=== PATIENT | male | born 1940 | race Caucasian/White ===

== ENCOUNTER 2017-02-15 07:18 | Emergency (ER) | payer MEDICARE, OTHER ==
[~2017-02-15] VITALS: Ht 170.2 cm; Wt 89.8 kg
[~2017-02-15 07:18] MED LIST: ASPIRIN EC81 MG PO; CISPLATIN1 MG/1 ML IV; GEMCITABINE HCL1 GM IV; GLIMEPIRIDE4 MG PO; GLUTAMENT10 GM PO; LANTUS100 UNIT/1 SUB-Q; LORAZEPAM1 MG PO; NOVOLOG100 UNITS/ SUB-Q; OMEPRAZOLE20 MG; PRILOSEC20 MG PO; PROBIOTIC1 EAC1; TOPROL XL25 MG PO; VITAMIN D-32000 UNIT PO; VITAMIN E100 UNI1 PO; WARFARIN SODIUM5 MG; ZYRTEC10 MG
[2017-02-15] MEDS ORDERED: ACETAMINOPHEN-1 EAC1 PO (07:36)
--- NOTE | 2017-02-16 07:31 | EKG ---
[facility] [address] [place], [place] [address] Signed Sinus tachycardia Low voltage QRS Possible Inferior infarct , age undetermined Abnormal ECG No previous ECGs available Confirmed by BALDO COTO MD ([id number]) on 02/16/2017 7:31:05 AM Electronically Signed By: BALDO COTO MD 02/16/17 0731 PATIENT NAME: KIMMIE ATKINS Electrocardiogram DATE OF : 42 PHYSICIAN: BALDO COTO MD REPORT #: [id number] REPORT IS CONFIDENTIAL AND NOT TO BE RELEASED WITHOUT AUTHORIZATION
[2017-03-22] MEDS ORDERED: DOXYCYCLINE HY100 MG PO (10:30)
== END 2017-02-15 13:03 | disposition home or self-care (01) ==
LOC: ED 07:18
DX: R41.0 Disorientation, unspecified (principal); R53.1 Weakness; E11.9 Type 2 diabetes mellitus without complications; C78.7 Secondary malignant neoplasm of liver and intrahepatic bile duct; Z86.711 Personal history of pulmonary embolism; Z87.891 Personal history of nicotine dependence; Z90.49 Acquired absence of other specified parts of digestive tract; Z88.8 Allergy status to other drugs, medicaments and biological substances; Z79.82 Long term (current) use of aspirin; Z79.899 Other long term (current) drug therapy; Z79.84 Long term (current) use of oral hypoglycemic drugs
CPT/HCPCS: 70450; 70553; 71020; 80053; 81001; 83605; 84484; 85025; 87040; 87077; 87186; 93005; 93010; 99284; A9579

== ENCOUNTER 2017-02-16 09:58 | Inpatient (IN) | payer MEDICARE, OTHER ==
[~2017-02-16] VITALS: Ht 170.2 cm; Wt 91.0 kg
[~2017-02-16 09:58] MED LIST changes: +ACETAMINOPHEN-1 EAC1 PO
--- OUTSIDE RECORDS SUMMARY | 2017-02-16 10:20 | XMS | Clinical Summary ---
Demographics + + + | Address | [address] | | | [place] [address] | + + + | Home Phone | | + + + | Preferred Language | Unknown | + + + | Marital Status | | + + + | Synagogue Affiliation | Unknown | + + + | Race | White | + + + | Ethnic Group | Not or | + + + Author + + + | Author | [facility] | + + + | Organization | [facility] | + + + | Address | Unknown | + + + | Phone | Unavailable | + + + Support +------+ + + + +-------+ | Name | Relationship | Address | Phone | +------+ + + + +-------+ ECON | [address] | | [place] | [id number] | +------+ + + + +-------+ Care Team Providers + +------+-------+ | Care Edge Plugger Name | Role | Phone | + +------+-------+ | Kory Briceno MD | PP | tel | + +------+-------+ Source Comments JEREMY is fully live on [facility] and [facility] & [facility] Allergies + + + + + + | Active Allergy | Reactions | Severity | Noted | Comments | | | | | Date | | + + + + + + | Cyclobenzaprine | Confusion | | 09/04/19 | | | | | | 16 | | + + + + + + | Promethazine Hcl | Agitation | | 09/04/19 | From Phenergan | | | | | 16 | | + + + + + + Current Medications + + +-------+---------+------+------+-------+ | Prescription | Sig. | Disp. | Refills | Star | End | Statu | | | | | | t | Date | s | | | | | | Date | | | + + +-------+---------+------+------+-------+ | aspirin EC 81 mg | Take 162 mg by mouth | | | | | Activ | | oral tablet,delayed | once daily. | | | | | e | | release (DR/EC) | | | | | | | + + +-------+---------+------+------+-------+ | omeprazole 20 mg | Take 20 mg by mouth | | | | | Activ | | oral capsule,delayed | once daily. | | | | | e | | release(DR/EC) | | | | | | | + + +-------+---------+------+------+-------+ | pyridoxine, | Take 100 mg by mouth | | | | | Activ | | vitamin B6, (VITAMIN | once daily. | | | | | e | | B-6) 100 mg oral | | | | | | | | tablet | | | | | | | + + +-------+---------+------+------+-------+ | cyanocobalamin, | Place 1 tablet under | | | | | Activ | | vitamin B-12, | tongue once daily. | | | | | e | | (VITAMIN B-12) 5,000 | | | | | | | | mcg sublingual | | | | | | | | tablet, sublingual | | | | | | | + + +-------+---------+------+------+-------+ | CHOLECALCIFEROL, | Take 2,000 Units by | | | | | Activ | | VITAMIN D3, (VITAMIN | mouth two times | | | | | e | | D3 ORAL) | daily. | | | | | | + + +-------+---------+------+------+-------+ | LACTOBACILLUS | Take 1 tablet by | | | | | Activ | | ACIDOPHILUS | mouth once daily. | | | | | e | | (PROBIOTIC ORAL) | | | | | | | + + +-------+---------+------+------+-------+ Active Problems Not on file Family History + + +------+ + | Medical History | Relation | Name | Comments | + + +------+ + | Alcohol/Drug | Father | | | + + +------+ + | Diabetes | Father | | | + + +------+ + | Heart Disease | Father | | | + + +------+ + | Stroke | Father | | | + + +------+ + | Arthritis | Mother | | | + + +------+ + | Diabetes | Mother | | | + + +------+ + | Arthritis | Sister | | | + + +------+ + + +------+--------+ + | Relation | Name | Status | Comments | + +------+--------+ + | Father | | | | + +------+--------+ + | Mother | | | | + +------+--------+ + | Sister | | | | + +------+--------+ + Social History + + + +--------+ + | Tobacco Use | Types | Packs/Day | Years | Date | | | | | Used | | + + + +--------+ + | Former Smoker | Cigarettes | 1 | | Quit: 03/13/1974 | + + + +--------+ + + +---+---+---+ | Smokeless Tobacco: | | | | | Never Used | | | | + +---+---+---+ + + +---------+ + | Alcohol Use | Drinks/We | oz/Week | Comments | | | ek | | | + + +---------+ + | Yes | 0-2 | 0.0 - | | | | Standard | 1.2 | | | | drinks or | | | | | | | | | | equivalen | | | | | t | | | + + +---------+ + + + + | Sex Assigned at | Date Recorded | | | | + + + | Not on file | | + + + Last Filed Vital Signs + + + + | Vital Sign | Reading | Time Taken | + + + + | Blood Pressure | 112/75 | 09/04/2015 10:24 AM PDT | + + + + | Pulse | 82 | 09/04/2015 10:24 AM PDT | + + + + | Temperature | 36.8 C (98.2 F) | 09/04/2015 10:24 AM PDT | + + + + | Respiratory Rate | 16 | 09/04/2015 10:24 AM PDT | + + + + | Oxygen Saturation | - | - | + + + + | Inhaled Oxygen | - | - | | Concentration | | | + + + + | Weight | 89.8 kg (198 lb) | 09/04/2015 10:24 AM PDT | + + + + | Height | 167 cm (5' 5.75") | 09/04/2015 10:24 AM PDT | + + + + | Body Mass Index | 32.2 | 09/04/2015 10:24 AM PDT | + + + + Plan of Treatment + + + + + | Health Maintenance | Due Date | Last Done | Comments | + + + + + | INFLUENZA VACCINE | | | | | (FLU SHOT) | 7 | | | + + + + + Results Not on filefrom Last 3 Months
[2017-03-22] MEDS ORDERED: DOXYCYCLINE HY100 MG PO (10:30)
== END 2017-02-19 13:30 | disposition swing bed (61) | DRG 872 ==
LOC: ED 09:58 → MS 13:24
PROVIDERS: ADMIT Internal Medicine
DX: A41.81 Sepsis due to Enterococcus (principal); C22.1 Intrahepatic bile duct carcinoma; C79.9 Secondary malignant neoplasm of unspecified site; E11.9 Type 2 diabetes mellitus without complications; Z86.718 Personal history of other venous thrombosis and embolism; Z79.84 Long term (current) use of oral hypoglycemic drugs
CPT/HCPCS: 36415; 76700; 80053; 81001; 83605; 85025; 85610; 86140; 87040; 87045; 87046; J0290; J0696; J2185; J7030

== ENCOUNTER 2017-02-19 13:30 | Inpatient (IN) | payer MEDICARE, OTHER ==
[~2017-02-19] VITALS: Ht 170.2 cm; Wt 94.6 kg
--- NOTE | 2017-02-19 14:04 | NUR ---
MED REC COMPLETE WITH PATIENT IN-PATIENT STATUS, NOW SWING BED.
--- NOTE | 2017-02-19 14:30 | NUR ---
PT TRANSITIONED TO SWING BED FOR IV ABX THERAPY. ABX INFUSING. PT ON ROOM AIR, LUNG SOUNDS CLEAR. PT WITHOUT EDEMA. IV TO LEFT AC, PATENT. PT TOLERATING ADA DIET. INDEPENDENT IN ROOM. PT DENIES NEEDS AT THIS TIME.
--- NOTE | 2017-02-19 17:35 | NUR ---
PT WALKING IN RIBERA INDEPENDENTLY.
--- NOTE | 2017-02-19 17:59 | NUR ---
PT NOW SWING BED. ON ROOM AIR, LUNG SOUNDS CLEAR. ADA DIET, ACCUCHECKS, TOLERATING WELL. INDEPENDENT IN ROOM AND RIBERA. RECEIVING IV AMPICILLIN Q4H, OTHERWISE SALINE LOCKED, IV DUE TO BE ROTATED TOMORROW. PT VOIDING QS, HAD BM TODAY.
--- NOTE | 2017-02-19 18:46 | NUR ---
PATIENT REFUSED SHOWER TODAY BUT WILL TAKE A SHOWER TOMORROW. 6 LAPS AROUND MED SURG.
--- NOTE | 2017-02-19 19:53 | NUR ---
AMBULATING IN HALLS, IN GOOD SPIRITS, SL SECURED AND PATENT.
--- NOTE | 2017-02-19 22:00 | NUR ---
SCHEDULED ABX STARTED, HS CARES DONE INDEP BY PT, STATES HE IS READY TO GO TO BED FOR THE EVNING, IN GOOD SPIRITS, DENIES FURTHER NEEDS, CALL LIGHT IN EASY REACH.
--- NOTE | 2017-02-20 02:36 | NUR ---
REFILLED ICE WATER.
--- NOTE | 2017-02-20 04:00 | NUR ---
PT IS RESTING COMFORTABLY, RESP EVEN AND UNLABORED.
--- NOTE | 2017-02-20 08:07 | NUR ---
PT AWAKE IN BED. EMPTYED URNAIL. SET NURSE UP TO DO IV. GAVE WET WASH CLOTH. AM CARE. EMPTY GARBAGE. FRESH ICE WATER AND COFFEE.
--- NOTE | 2017-02-20 10:17 | NUR ---
PATIENT SET UP FOR SHOWER. IN ROOM TO HELP. PATIENT IS INDEPENDANT AND DENIES OTHER NEEDS.
--- NOTE | 2017-02-20 10:54 | NUR ---
PT IV INFILTRATED. DC'D. AMPICILIN NOT GIVEN THIS MORNING. UNABLE TO START IV.
--- NOTE | 2017-02-20 11:37 | NUR ---
PT IN BED AWAKE. ASKED IF HE NEEDED ANDTHING PT STATED HE WAS FINE. COMPLETE LINEN CHANGE AND CLEANED UP BR AFTER SHOWER.
--- NOTE | 2017-02-20 11:48 | NUR ---
PT RESTING, WITH HIS SUPPORTING. PT SEEMS ALITTLE UPSET HIS VEINS COLLAPSED. THEY CAN NOW USE A PORT FOR BOTH IV INFUSION FOR ANTI-BIOTICS AND HIS CANCER TREATMENT. HE SEEMS TO BE COPING. O.T. CAME IN TO WORK WITH PT. WILL CONTINUE TO FOLLOW NEEDED
--- NOTE | 2017-02-20 12:03 | NUR ---
PATIENT SET UP IN CHAIR TO EAT LUNCH WITH . CALL BUTTON IN REACH. LINENS CHANGED. FRESH ICE WATER GIVEN.
--- NOTE | 2017-02-20 16:06 | NUR ---
PT DOING WELL SAID HE DID NOT NEED ANYTHING,
--- NOTE | 2017-02-20 18:06 | NUR ---
SWING BED. HERE FOR REHAB AND ABX. ROCEPHIN DAILY. WILL CONTINUE TO RECEIVE THROUGH . DANY PICC LINE PLACED TODAY. 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 WILL KEEP PICC FOR TREATMENT AFTER D/C. INDEPENDENT TO AMBULATE.
--- NOTE | 2017-02-20 19:15 | NUR ---
BEDSIDE REPORT RECEIVED FROM OFFGOING RN'S. PT LYING IN BED, DENIES NEEDS AT THIS TIME. CALL LIGHT WITHIN REACH.
--- NOTE | 2017-02-20 22:45 | NUR ---
PT RESTING IN BED WITH EYES CLOSED, WAKES EASILY. PT ASSESSMENT COMPLETED. PT DENIES PAIN, NAUSEA, SOB. PICC LINE PRESSURE DRESSING REMOVED. SLIGHT AMOUNT OF BLOOD NOTED BELOW PICC LINE DRESSING. PT DENIES PAIN OR TENDERNESS TO SITE. PT REQUESTS ICE FOR WATER, PROVIDED. PT DENIES OTHER NEEDS. CALL LIGHT WITHIN REACH.
--- NOTE | 2017-02-21 00:15 | NUR ---
PT RESTING IN BED WITH EYES CLOSED. RESPIRATIONS EVEN AND UNLABORED. PT APPEARS TO BE SLEEPING. CALL LIGHT WITHIN REACH.
--- NOTE | 2017-02-21 02:20 | NUR ---
PT RESTING IN BED WITH EYES CLOSED. WAKES EASILY FOR MEDICATION ADMINISTRATION, REMAINS DROWSY. PT DENIES NEEDS AT THIS TIME. URINAL EMPTIED, CALL LIGHT WITHIN PT'S REACH.
--- NOTE | 2017-02-21 05:48 | NUR ---
UNEVENTFUL NIGHT. PT RESTING MOST OF SHIFT. NO PAIN. ROCEPHIN AND AMPICILLIN DAILY, WILL CONTINUE THROUGH 02/25. PICC PLACED YEST., PLAN TO DC WITH PICC FOR KEYTRUDA. PT WITH METASTATIC CHOLANGIOCARCINOMA WITH METS TO LIVER. PT INDEPENDENT. PICC HEP LOCKED, EXCEPT FOR IV ABX. UO QS.
--- NOTE | 2017-02-21 07:50 | NUR ---
PT IN BED AWAKE. PICKED UP ROOM. SET UP FOR BRK. AM CARE.
--- NOTE | 2017-02-21 10:06 | NUR ---
STARTED CEFEPIME. PT UP IN BED. AT BEDSIDE. PAIN @ 7/10 IN STOMACH. NO BM FOR 2 DAYS. OFFERED PRUNE JUCE. DCLINED FOR NOW. PLAN TO WALK AND SHOWER WHEN SALINE LOCKED.
--- NOTE | 2017-02-21 11:18 | NUR ---
PT WAS WALKING IN RIBERA AND STOPPED BY MY OFFICE. HE HAD JUST TAKEN A SHOWER AND WAS LOOKING FOWARD TO WALKING TO THE CANCER CLINIC AND GET SOME INFO REGARDING BLOOD DRAWS USING HIS NEW PICC LINE. SLEPT WELL, BUT ANXIOUS TO BE DC'D. MUST BE FEELING BETTER, HE JOKED WITH ME MORE TODAY. WILL CONTINUE TO FOLLOW NEEDED
--- NOTE | 2017-02-21 11:51 | NUR ---
lunch trays taken into room. got patient set up on side of bed for lunch
--- NOTE | 2017-02-21 14:57 | NUR ---
PT WATCHING TV. COMFORTABLE IN BED. NO PAIN REPORTED. PERSONAL ITEMS AND CALL LIGHT WITHIN REACH. AMPICILLIN STARTED .
--- NOTE | 2017-02-21 15:29 | NUR ---
PT AWAKE IN BED. FRESH ICE WATER.
--- NOTE | 2017-02-21 16:53 | NUR ---
PT COMFORTABLE IN BED. EMPTIED URINAL. NO PAIN. PERSONAL ITEMS AND CALL LIGHT WITHIN REACH.
--- NOTE | 2017-02-21 17:24 | NUR ---
SWING BED. PT RECEIVING AMPICILLAN Q4H. INDIPENDENT. PICC IN DANY SALINE LOCKED. OCATIONAL ABDOMINAL PAIN.ADA DIET. DISCHARGE PLAN FOR THE THE .
--- NOTE | 2017-02-21 17:31 | NUR ---
SWING BED. DAILY AMPICILLAN. INDEPENDENT. DANY PICC SALINE LOCKED. OCCASIONAL ABDOMINAL PAIN. (CRAMP) WALKS IT OFF. PLAN TO DISCHARGE THE . PLANS TO KEEP PICC AFTER DISCHARGE.
--- NOTE | 2017-02-21 18:40 | NUR ---
PT DOING WELL. FRESH ICE WATER.
--- NOTE | 2017-02-21 19:15 | NUR ---
BEDSIDE REPORT RECEIVED FROM OFFGOING RNS. PT LYING IN BED. REQUESTS MORE WATER, PROVIDED. PT DENIES OTHER NEEDS AT THIS TIME. CALL LIGHT WITHIN REACH.
--- NOTE | 2017-02-21 20:52 | NUR ---
REFILLED FRESH ICE WATER.
--- NOTE | 2017-02-21 23:00 | NUR ---
PT ASSESSMENT COMPLETE. PT DENIES PAIN, NAUSEA, SOB. PT UP TO USE THE BATHROOM INDEPENDENTLY. PT DENIES FURTHER NEEDS AT THIS TIME. CALL LIGHT WITHIN REACH.
--- NOTE | 2017-02-21 23:27 | NUR ---
PT IV SOUNDING, PT WOKE. EMPTIED URINAL, CALL LIGHT WITH REACH. OFFERS NO COMPLAINTS, NO OTHER NEEDS.
--- NOTE | 2017-02-22 02:15 | NUR ---
PT UP TO USE THE BATHROOM INDEPENDENTLY WITHOUT ASSISTANCE WHILE SUPERINTENDENT MARINE OIL TERMINAL IN ROOM. PT DENIES PAIN, NAUSEA, SOB. STATES THAT HE WAS SLEEPING WELL. DENIES NEEDS AT THIS TIME.
--- NOTE | 2017-02-22 03:00 | NUR ---
IV TUBING DISCONNECTED, PICC LINE SL. PT TOLERATED WELL. DENIES NEEDS AT THIS TIME. CALL LIGHT WITHIN REACH.
--- NOTE | 2017-02-22 05:12 | NUR ---
UNEVENTFUL SHIFT. PT RESTED THROUGH THE NIGHT. NO PAIN, NAUSEA, SOB. Q 4 AMPICILLIN THROUGH 02/25. PICC LINE TO DANY. PT PLAN TO DC WITH PICC FOR CHEMO TX. INDEPENDENT IN ROOM AND HALLWAY. UO QS.
--- NOTE | 2017-02-22 07:05 | NUR ---
BEDSIDE HANDOFF REPORT RECEIVED FROM WINDING MACHINE OPERATOR RN. PT SLEEPING LEFT UNDISTURBED.
--- NOTE | 2017-02-22 08:00 | NUR ---
PT SITTING ON EDGE OF BED. PT DENIES PAIN. PT ON ROOM AIR, LUNG SOUNDS CLEAR, DENIES SOB. PT TOELRATING ADA DIET, GOOD APPETITE, BOWEL TONES ACTIVE, PT WITHOUT BM FOR 2 DAYS, DISCUSSED BOWEL PROTOCOL, PT WOULD LIKE TO TRY PRUNE JUICE FOR NOW, WILL REASSESS FOR BM. PT PT WITH PICC LINE, SALINE LOCKED. PT WITHOUT EDEMA, HX NEUROPATHY, DENIES NEW NUMBNESS OR TINGLINING. PT VOIDING QS. PT DENIES OTHER NEEDS AT THIS TIME, DISCUSSED PLAN OF CARE FOR THE DAY.
--- NOTE | 2017-02-22 10:01 | NUR ---
PATIENT RESTING IN BED WATCHING TV. PATIENT WOULD LIKE TO SHOWER AFTER IV MEDICATION IS FINISHED. FRESH ICE WATER GIVEN CALL BUTTON IN REACH. NO OTHER NEEDS AT THIS TIME.
--- NOTE | 2017-02-22 10:41 | NUR ---
IV AMPICILLIN INFUSION COMPLETED. PICC LINE FLUSHED, HERPAIN LOCKED. PT DENIES NEEDS AT THIS TIME.
--- NOTE | 2017-02-22 13:20 | NUR ---
PT COMPLAINT OF RUQ ABD PAIN WITH RADIATION TO THE BACK, RATING PAIN 10/10, ATTEMPTED TO WALK, STATED THAT DID NOT HELP. GIVEN ASPIRIN PER PRN ORDER. MD NOTIFIED OF NEW REPORT OF PAIN.
--- NOTE | 2017-02-22 13:46 | NUR ---
PT GIVEN 2.5MG OXYCODONE FOR ABD PAIN 12/20. IV AMPICILLIN INFUSING. PT DENIES OTHER NEEDS AT THIS TIME.
--- NOTE | 2017-02-22 14:21 | NUR ---
PT RESTING IN BED, STRONG ABDOMONAL PAIN. PAIN MEDS GIVEN, HAS BEEN A VERY DIFFICULT DAY FOR HIM. PT REQUESTED PRAYER-STILL TRYING TO STAY POSITIVE. I WILL CONTINUE TO FOLLOW
--- NOTE | 2017-02-22 17:46 | NUR ---
PT RESTING IN BED. IV AMPICILLIN INFUSING. DISCUSSED PAIN MANAGEMENT WITH PT, PT CONTINUES TO RATE PAIN HIGH, PT DOES NOT WANT TO INCREASE DOSE OR TRY A DIFFERENT NARCOTIC PAIN MEDICATION, PT REFUSING HEAT/COLD THERAPY. PT DENIES NEEDS AT THIS TIME.
--- NOTE | 2017-02-22 17:48 | NUR ---
PT HAD UNEVENTFUL DAY. PT WITH INCREASED PAIN TO RUQ, NEW ORDER FOR 2.5 MG OXYCODONE, HAS NOT RECEIEVED RELIEF. PT ON ROOM AIR, LUNG SOUNDS CLEAR. PT INDEPENDENT IN ROOM. TOLERATING ADA DIET. PT SALINE LOCKED, RECEIVING IV AMPICILLIN. PT VOIDING QS, HAD BM TODAY.
--- NOTE | 2017-02-22 19:00 | NUR ---
RECEIVED REPORT FROM DAY SHIFT RN. PATIENT IS RESTING IN BED. PATIENT DENIES ANY NEEDS AT THIS TIME. CALL LIGHT IN REACH.
--- NOTE | 2017-02-22 20:00 | NUR ---
whiteboard updated, room tidied. patient water refilled. does not need anything else at this time.
--- NOTE | 2017-02-22 20:20 | NUR ---
PATIENT ASSESMENT COMPLETED. PATIENTS EVENING MEDICATIONS GIVEN PER ORDER. PATIENT RATES PAIN AT AN 8/10. PATIENT REFUSES PAIN MEDICATION AT THIS TIME. PATIENT OFFERED ALTERNATIVE METHODS SUCH HEAT PACK/ICE PACKS. PATIENT REFUSED. PATIENT DENIES ANY FURTHER NEEDS AT THIS TIME. CALL LIGHT IS WITHIN REACH. PATIENT IS AAOX3.
--- NOTE | 2017-02-22 21:10 | NUR ---
ABX DONE INFUSING. PATIENTS PICC LINE IS ERNESTO HEPLOCKED. PATIENT DENIES ANY FURTHER NEEDS. AT THIS TIME. CALL LIGHT IN REACH.
--- NOTE | 2017-02-22 21:22 | NUR ---
PT BAKARI SOUNDING. PT STATED HE "HAD A BAD DAY" WHEN ASKED HOW HIS DAY WAS. SAID HE HAD "LIVER AND STOMACH PAIN" IS BETTER NOW. VISITED WITH PT FOR FEW MIN, SAID HE WAS OK, CALL LIGHT WITHIN REACH. DENIES NEEDS AT THIS TIME.
--- NOTE | 2017-02-22 23:56 | NUR ---
refilled patient's ice water and dumped urinal. also got patient lotion for his feet as he states they are itchy.
--- NOTE | 2017-02-23 00:04 | NUR ---
PATIENT IS RESTING IN BED WITH EYES CLOSED. BREATHING IS EVEN AND UNLABORED, RR 17. CALL LIGHT IN REACH.
--- NOTE | 2017-02-23 01:56 | NUR ---
PATIENTS 0200 MEDICATIONS GIVEN PER ORDER. PATIENT RATES PAIN AT A 7/10. PATIENT CONTINUES TO REFUSE PAIN MEDICATION. PATIENT DENIES ANY FURTHER NEEDS AT THIS TIME. CALL LIGHT IN REACH.
--- NOTE | 2017-02-23 02:55 | NUR ---
NURSE IN ROOM
--- NOTE | 2017-02-23 02:59 | NUR ---
IV ABX IS DONE INFUSING. PATIENT IS NOW SL. PATIENT DID NOT AWAKEN. PATIENTS BREATHING IS EVEN AND UNLABORED, RR 18. CALL LIGHT IN REACH.
--- NOTE | 2017-02-23 04:07 | NUR ---
PATIENT IS IN BED RESTING WITH EYES CLOSED. BREATHING IS EVEN AND UNLABORED, RR18. CALL LIGHT IN REACH.
--- NOTE | 2017-02-23 04:47 | NUR ---
PATIENT RESTED WELL THROUGHOUT THE SHIFT. PATIENT IS ON AN ADA DIET, TOLERATING WELL, NO COMPLAINTS OF NAUSEA. PATIENTS PICC IS SL/HEP LOCKED WHEN NOT IN USE. PATIENT IS INDEPENDENT IN THE ROOM AND IS STEADY ON HIS FEET. PATIENT IS AAOX3. PATIENT HAS INCREASED PAIN BUT REFUSES PAIN MEDICATION.
--- NOTE | 2017-02-23 05:49 | NUR ---
PATIENTS 0600 MEDICATIONS GIVEN PER ORDER. PATIENT ONLY AWOKEN MOMENTARILY THEN WENT BACK TO SLEEP. CALL LIGHT IN REACH.
--- NOTE | 2017-02-23 06:28 | NUR ---
PATIENTS IV ABX IS DONE INFUSING. PATIENT IS NOW SL. PATIENT DENIES ANY NEEDS AT THIS TIME. PATIENT IS UP TO THE RESTROOM AND IS STEADY ON HIS FEET.
--- NOTE | 2017-02-23 10:00 | NUR ---
PATIENT UP AMBULATING IN HALLS, STATES " MY PAIN IS FINE, I TOLERATE IT FINE AND DON'T NEED ANYTHING". NO GRIMACE TO FACE. VS STABLE. PATIENT PLANS TO HAVE LUNCH WITH TODAY.
--- NOTE | 2017-02-23 11:30 | NUR ---
PATIENT LEFT TO HAVE LUNCH DOWNSTAIRS WITH .
--- NOTE | 2017-02-23 12:36 | NUR ---
PT SITTING UP IN BED-ALERT, ORIENTED AND SUPPORTED BY HIS DENTON. TODAY IS A MUCH BETTER DAY. THEY ARE GOING TO THE [facility] FOR LUNCH, BUT DENTON IS MAKING HIM GET DRESSED! GOOD VISIT, COUNTING DOWN THE DAYS UNTIL DC SAT. I EXTENDED A BLESSING, WILL CONTINUE TO FOLLOW
--- NOTE | 2017-02-23 15:13 | NUR ---
PT IS RESTING IN BED WITH CALL LIGHT IN REACH. PT DID NOT NEED ANYTHING AT THE MOMENT
--- NOTE | 2017-02-23 17:40 | NUR ---
PT IS RESTING IN BED SAFELY WITH CALL LIGHT IN REACH. PT ASKED FOR MORE ICE WATER.
--- NOTE | 2017-02-23 18:34 | NUR ---
PATIENT UP THROUGHOUT DAY, NO COMPAINTS OF INCREASED PAIN. REPORTS MANAGING PAIN WELL. WENT TO LUNCH WITH . APPEARS TO BE IN GOOD SPIRITS. PATIENT STATES " MY PAIN IS WELL CONTROLLED".
--- NOTE | 2017-02-23 20:01 | NUR ---
RECEIVED REPORT FROM DAYU SHIFT RN. PATIENT IS RESTING IN BED WATCHING TV. PATIENT DENIES ANY NEEDS. NO NEEDS AT THIS TIME. CALL LIGHT IN REACH.
--- NOTE | 2017-02-23 21:49 | NUR ---
PATIENT ASSESMENT COMPLETED. PATIENTS EVENING MEDCIATIONS GIVEN PER ORDER. PATIENT RATES PAIN AT A 5/10. PATIENT CONTINUES TO REFUSE PAIN MEDICATION. EDUCATED PATIENT ON PAIN MANAGEMENT. PATIENT STATED "IT IS BETTER AND I CAN TOLERATE IT" PATIENT AGREED TO CALL IF HE NEEDED ANY PAIN MEDICATION AT THIS TIME. PATIENT DENIES ANY FURTHER NEEDS CALL LIGHT IN REACH.
--- NOTE | 2017-02-23 22:14 | NUR ---
PATIENTS ABX IS DONE INFUSING. PATIENTS PICC LINE IS NOW HEP LOCKED. PATIENT CONTINUES TO REFUSE PAIN MEDICATION. PAIN IS A 4/10. PATIENT DENIES ANY FURTHER NEEDS AT THIS TIME. CALL LIGHT IN REACH.
--- NOTE | 2017-02-23 23:59 | NUR ---
PATIENT IS RESTING IN BED WITH EYES CLOSED. BREATHING IS EVEN AND UNLABORED, RR 17. CALL LIGHT IN REACH.
--- NOTE | 2017-02-24 02:12 | NUR ---
PATIENTS 0200 MEDICATIONS GIVEN PER ORDER. PATIENT DENIES ANY NEEDS AT THIS TIME. CALL LIGHT IN REACH.
--- NOTE | 2017-02-24 04:05 | NUR ---
PATIENT IS RESTING IN BED WITH EYES CLOSED, RR 18
--- NOTE | 2017-02-24 04:53 | NUR ---
PATIENT RESTED WELL THROUGHOUT THE SHIFT. PATIENT IS ON AN ADA DIET AND TOELRATING IT WELL, NO COMPLAINTS OF NAUSEA. PATIENT IS INDEPENDNET IN THE ROOM AND IS STEADY ON HIS FEET. PATIENT HAS A PICC LINE IN HIS RIGHT ARM THAT DRAWS BACK BLOOD AND FLUSHES WELL. PICC IS HEP/SL WHEN NOT IN USE. PATIENT CONTINUES TO RATE PAIN AT A 4-5/10 IN THE RUQ. PATIENT CONTINUES TO REFUSE PAIN MEDICATION. PATIENT IS AAOX3 AND USES CALL LIGHT APPROPRIATELY.
--- NOTE | 2017-02-24 06:41 | NUR ---
PATIENTS IV ABX IS DONE INFUSING. PATIENT IS NOW SL
--- NOTE | 2017-02-24 09:25 | NUR ---
PT IS RESTING IN BED SAFELY WITH CALL LIGHT IN REACH. PT WAS WASHED FACE AND HANDS, WELL BRUSHED HIS TEETH. PT WILL CALL WHEN HE IS READY TO SHOWER. PT ASKED FOR ICE WATER
--- NOTE | 2017-02-24 11:00 | NUR ---
PATIENT RESTING IN BED, STATES " I JUST DON'T FEEL WELL TODAY". FULL BODY ASSEMSENT DONE. DENIES PAIN. VS STABLE.
[2017-02-24] MEDS ORDERED: AMOXICILLIN500 MG PO (12:18)
--- NOTE | 2017-02-24 14:05 | NUR ---
PT RESTING COMFORTABLY, WATCHING TV. HE IS ALMOST COUNTING THE SECONDS UNTIL DC TOMORROW BY 10AM. SAID HE FEELS SO MUCH BETTER THAN WHEN HE CAME IN. EXTENDED A BLESSING
--- NOTE | 2017-02-24 14:48 | NUR ---
ASKED HIM IF HE WANTED TO TAKE A SHOWER TODAY AND HE SAID HE WILL TAKE ONE TOMORROW.
--- NOTE | 2017-02-24 18:10 | NUR ---
PT IS RESTING IN BED SAFELY WITH CALL LIGHT IN REACH. PT ASKED FOR MORE ICE WATER
--- NOTE | 2017-02-24 18:30 | NUR ---
PATIENT RESTED THROUGHOUT DAY, UP AMBULATING IN HALLS FEW TIMES THROUGHOUT DAY. IV ANTIBIOTICS CONTINUED. PLAN TO DISCHARGE IN THE MORNING.
--- NOTE | 2017-02-24 19:00 | NUR ---
HANDOFF REPORT RECEIVED FROM MILAGROS SOMMER AT PT DOORWAY, PER PT REQUEST TO SLEEP. PT SLEEPING ON LEFT SIDE, VISIBLE CHEST RISE. WILL CONTINUE TO MONITOR.
--- NOTE | 2017-02-24 20:49 | NUR ---
PT SLEEPING, LIGHTS OFF IN ROOM, APPEARS COMFORTABLE, BREATHING UNLABORED, VISIBLE CHEST RISE. WILL CONTINUE TO MONITOR.
--- NOTE | 2017-02-24 22:19 | NUR ---
PT ASSESSMENT COMPLETE. PT LYING IN BED, DENIES PAIN AT THIS TIME. BOWEL TONES ACTIVE X 4, PT DENIES PAIN W PALPATION. PT DENIES NAUSEA. AMPICILLIN INFUSING PICC LINE WNL, BLOOD RETURN WITH PICC LINE, FLUSHES WELL. PT HAS CALL LIGHT IN REACH, NO ADDITIONAL REQUESTS AT THIS TIME.
--- NOTE | 2017-02-24 22:49 | NUR ---
ANSWERED PT CALL LIGHT, AMPICILLIN INFUSION COMPLETE, PICC LINE HEPARIN LOCKED, SITE WNL, BLOOD RETURN, FLUSHES WELL. PT HAS CALL LIGHT IN REACH. NO ADDITIONAL REQUESTS AT THIS TIME.
--- NOTE | 2017-02-25 02:08 | NUR ---
IN PT ROOM TO START ANTIBIOTIC INFUSION. PT SLEEPING, AWAKENS TO VOICE. PICC LINE HAS BLOOD RETURN, FLUSHES WELL, ABT INFUSING AT THIS TIME. CALL LIGHT IN REACH.
--- NOTE | 2017-02-25 04:30 | NUR ---
PT APPEARS TO BE SLEEPING, LYING ON LEFT SIDE IN BED, EYES CLOSED, LIGHTS OFF, VISIBLE CHEST RISE.
--- NOTE | 2017-02-25 05:14 | NUR ---
PT HAS SLEPT THROUGHOUT SHIFT, DENIED PAIN THROUGHOUT SHIFT. PT CONTINUES TO RECEIVE IV AMPICILLIN. PICC LINE FLUSHES WELL AND HAS GOOD BLOOD RETURN. ALERT AND ORIENTED X 3, HAS USED CALL LIGHT APPROPRIATELY.
--- NOTE | 2017-02-25 07:45 | NUR ---
PT AWAKE IN BED. AM CARE. FRESH ICE WATER. AMBULATION.
--- NOTE | 2017-02-25 07:52 | NUR ---
REPORT RECEIVED FROM NELY. PATIENT ASLEEP AT THE TIME OF REPORT. RR/EVEN/UNLABORED.
--- NOTE | 2017-02-25 08:07 | NUR ---
PATIENT SITTING IN AT THE BEDSIDE EATING BREAKFAST, DENIES PAIN AT THIS TIME. SHIFT ASSESSMENT COMPLETED. PICC LINE FLUSHED WELL WITH BLOOD RETURN.
--- NOTE | 2017-02-25 08:22 | NUR ---
brought breakfast into patients room. patient sl. so he could sit on edge of bed to eat. patient stating that today was his discharge day. patient stating he is getting anxious to go. updated on plan of care and how doctor eva will be in room later this morning.
--- NOTE | 2017-02-25 09:47 | NUR ---
PT DOING WELL TOOK VITALS. FRESH ICE WATER
--- NOTE | 2017-02-25 10:36 | NUR ---
PATIENT RESTING IN BED REPORTS NO COMPLAINTS. ABX STARTED. FAMILY AT BEDSIDE
[2017-03-22] MEDS ORDERED: DOXYCYCLINE HY100 MG PO (10:30)
== END 2017-02-25 11:16 | disposition home or self-care (01) | DRG 872 ==
LOC: MS 13:30
PROVIDERS: ADMIT Internal Medicine
PROC: 02HV33Z Insertion of Infusion Device into Superior Vena Cava, Percutaneous Approach (ICD-10-PCS; principal; 2017-02-20 13:00)
DX: A41.81 Sepsis due to Enterococcus (principal); C78.7 Secondary malignant neoplasm of liver and intrahepatic bile duct; E11.9 Type 2 diabetes mellitus without complications
CPT/HCPCS: 36415; 36569; 71010; 80048; 85025; 97116; 97161; 97165; C1751; J0290; J1650

== ENCOUNTER 2017-04-05 17:24 | Emergency (ER) | payer MEDICARE, OTHER ==
[~2017-04-05] VITALS: Ht 170.2 cm; Wt 79.4 kg
[~2017-04-05 17:24] MED LIST changes: +AMOXICILLIN500 MG PO; +DOXYCYCLINE HY100 MG PO
--- OUTSIDE RECORDS SUMMARY | 2017-04-05 17:53 | XMS | Clinical Summary ---
Demographics + + + | Address | [address] | | | [place] [address] | + + + | Home Phone | | + + + | Preferred Language | Unknown | + + + | Marital Status | | + + + | Yarsani Affiliation | Unknown | + + + | Race | White | + + + | Ethnic Group | Not or | + + + Author + + + | Author | [facility] | + + + | Organization | [facility] | + + + | Address | Unknown | + + + | Phone | Unavailable | + + + Support +------+ + + + +-------+ | Name | Relationship | Address | Phone | +------+ + + + +-------+ ECON | [address] | | [place] | [address] | +------+ + + + +-------+ Care Team Providers + +------+-------+ | Care Band Instrument Maker Name | Role | Phone | + +------+-------+ | Kory Briceno MD | PP | tel | + +------+-------+ Source Comments [facility] Allergies + + + + + [...] + +-------+---------+------+------+-------+ Active Problems Not on file Encounters +--------+ + + + + | Date | Type | Specialty | Care Team | Description | +--------+ + + + + | 02/18/ | Emergency | | | | | 2016 | | | | | +--------+ + + + + from Last 3 Months Family History + + +------+ + | [...]
--- OUTSIDE RECORDS SUMMARY | 2017-04-05 17:56 | XMS | Encounter Summary ---
Demographics + + + | Address | [address] | | | [place] [address] | + + + | Home Phone | | + + + | Preferred Language | Unknown | + + + | Marital Status | | + + + | Synagogue Affiliation | Unknown | + + + | Race | White | + + + | Ethnic Group | Not or | + + + Author + + + | Author | [facility] | + + + | Organization | [facility] | + + + | Address | Unknown | + + + | Phone | Unavailable | + + + Support +------+ + + + +-------+ | Name | Relationship | Address | Phone | +------+ + + + +-------+ ECON | [address] | | [place] | [address] | +------+ + + + +-------+ Care Team Providers + +------+-------+ | Care Manager Fire Name | Role | Phone | + +------+-------+ | Kory Briceno MD | PCP | tel | + +------+-------+ Reason for Visit +--------+ + | Reason | Comments | +--------+ + | Other | | +--------+ + Encounter Details +--------+ + + + + | Date | Type | Department | Care Team | Description | +--------+ + + + + | 02/18/ | Emergency | [facility] | | | | 2016 | | Department [address] | | | | | [address] | | | | | | [facility] | | | | | | [place] [address] | | | | | | [phone] | | | +--------+ + + + + Social History + + + +--------+ [...] on file | | + + + as of this encounter Medications at Time of Discharge + + +-------+---------+--------+ + | Medication | Sig. | Disp. | Refills | Start | End Date | | | | | | Date | | + + +-------+---------+--------+ + | aspirin EC 81 mg | Take 162 mg by mouth | | | | | | oral tablet,delayed | once daily. | | | | | | release (DR/EC) | | | | | | + + +-------+---------+--------+ + | CHOLECALCIFEROL, | Take 2,000 Units by | | | | | | VITAMIN D3, (VITAMIN | mouth two times | | | | | | D3 ORAL) | daily. | | | | | + + +-------+---------+--------+ + | cyanocobalamin, | Place 1 tablet under | | | | | | vitamin B-12, | tongue once daily. | | | | | | (VITAMIN B-12) 5,000 | | | | | | | mcg sublingual | | | | | | | tablet, sublingual | | | | | | + + +-------+---------+--------+ + | LACTOBACILLUS | Take 1 tablet by | | | | | | ACIDOPHILUS | mouth once daily. | | | | | | (PROBIOTIC ORAL) | | | | | | + + +-------+---------+--------+ + | omeprazole 20 mg | Take 20 mg by mouth | | | | | | oral capsule,delayed | once daily. | | | | | | release(/JOHNATHAN) | | | | | | + + +-------+---------+--------+ + | pyridoxine, | Take 100 mg by mouth | | | | | | vitamin B6, (VITAMIN | once daily. | | | | | | B-6) 100 mg oral | | | | | | | tablet | | | | | | + + +-------+---------+--------+ + as of this encounter Plan of Treatment Not on fileas of this encounter Visit Diagnoses Not on filein this encounter"
--- OUTSIDE RECORDS SUMMARY | 2017-04-05 17:56 | XMS | Clinical Summary ---
Demographics + + + | Address | [address] | | | [place] [address] | + + + | Home Phone | | + + + | Preferred Language | Unknown | + + + | Marital Status | | + + + | Adventist Affiliation | Unknown | + + + | Race | White | + + + | Ethnic Group | Not or | + + + Author + + + | Author | [facility] | + + + | Organization | [facility] | + + + | Address | Unknown | + + + | Phone | Unavailable | + + + Support +------+ + + + +-------+ | Name | Relationship | Address | Phone | +------+ + + + +-------+ ECON | [address] | | [place] | [address] | +------+ + + + +-------+ Care Team Providers + +------+-------+ | Care Mesh Man Name | Role | Phone | + +------+-------+ | Kory Briceno MD | PP | tel | + +------+-------+ Source Comments [facility] & [facility] to [facility] Allergies + + + + [...]
--- OUTSIDE RECORDS SUMMARY | 2017-04-05 17:56 | XMS | Encounter Summary ---
Demographics + + + | Address | [address] | | | [place] [address] | + + + | Home Phone | | + + + | Preferred Language | Unknown | + + + | Marital Status | | + + + | Anabaptism Affiliation | Unknown | + + + | Race | White | + + + | Ethnic Group | Not or | + + + Author + + + | Author | [facility] | + + + | Organization | [facility] | + + + | Address | Unknown | + + + | Phone | Unavailable | + + + Support +------+ + + + +-------+ | Name | Relationship | Address | Phone | +------+ + + + +-------+ ECON | [address] | | [place] | [address] | +------+ + + + +-------+ Care Team Providers + +------+-------+ | Care Battalion Chief Name | Role | Phone | + [...] + + | 02/18/ | Emergency | [facility] | | | | 2016 | | Department [address] | | | | | [address] | | | | | | [facility] | | | | | | [place] [address] | | | | | | [phone] | | | +--------+ + + + [...]
== END 2017-04-05 18:36 | disposition home or self-care (01) ==
LOC: ED 17:24
DX: C22.1 Intrahepatic bile duct carcinoma (principal); R62.7 Adult failure to thrive; E11.9 Type 2 diabetes mellitus without complications; Z87.01 Personal history of pneumonia (recurrent); Z88.8 Allergy status to other drugs, medicaments and biological substances; Z79.82 Long term (current) use of aspirin; Z79.84 Long term (current) use of oral hypoglycemic drugs; Z79.899 Other long term (current) drug therapy
CPT/HCPCS: 99283